=== PATIENT | female | born 1975 | race Caucasian/White ===

== ENCOUNTER 2021-11-21 12:18 | Inpatient (IN) ==
[2021-11-21 14:55] LABS: Basophils # (auto) 0.01 K/uL (0-0.2); Basophils % (auto) 0.1 %; Eosinophils # (auto) 0.02 K/uL (0-0.50); Eosinophils % (auto) 0.2 %; Hematocrit (blood only) 39.4 % (34.1-44.9); Hemoglobin 13.3 g/dl (12.0-16.0); Immature Granulocytes # (auto) 0.03 K/uL (0.00-0.02); Immature Granulocytes % (auto) 0.3 %; Lymphocytes # (auto) 0.92 K/uL (1.2-3.4); Lymphocytes % (auto) 9.3 %; Mean Corpuscular Hemoglobin 28.1 pg (25.0-34.0); Mean Corpuscular Hgb Conc 33.8 g/dL (32.0-36.0); Mean Corpuscular Volume 83.3 fL (80.0-100.0); Mean Platelet Volume 9.5 fL (9.4-12.3); Neutrophils # (auto) 8.63 K/uL (1.4-6.5); Neutrophils % (auto) 87.1 %; Platelet Count 233 K/uL (130-400); RDW Coefficient of Variation 12.3 % (11.5-14.5); RDW Standard Deviation 37.4 fL (36.4-46.3); Red Blood Count 4.73 M/uL (3.93-5.22); White Blood Count 9.91 K/ul (4.8-10.8)
[2021-11-21 15:12] LABS: Albumin Globulin Ratio 1.2 (0.9-2); Albumin Level 4.2 gm/dl (3.4-5.0); BUN Creatinine Ratio 23.9 (10-20); Bilirubin,Total 0.4 mg/dl (0.2-1.0); Calcium 9.2 mg/dl (8.5-10.1); Creatinine Clr Calc Pharmacy 103.4 ml/min; Est GFR (African American) 93.3 ml/min; Est GFR (Non-African American) 80.5 ml/min; Globulin 3.5 gm/dl (2.5-4.0); Potassium 3.8 mmol/L (3.5-5.1); Total Protein 7.7 gm/dl (6.0-8.3)
[2021-11-21] MEDS ORDERED: KETOROLAC 30 MG/ML VIAL IV STA (15:19)
[2021-11-21] MEDS ORDERED: ONDANSETRON INJ 2 MG/ML 2 ML VIAL IV STA (15:19)
[2021-11-21 15:26] LABS: Pregnancy Test, Serum Negative (Negative)
[2021-11-21] MEDS ORDERED: SODIUM CHLORIDE 0.9% 1000ML 1,000 ML IV SCH ×2 (15:30→18:45)
[2021-11-21] MEDS: MoRPHine SULFATE 4 MG/ML 1 ML CARP\\VIAL IV PRN ×2 (15:32→17:12)
[2021-11-21 16:20] LABS: Appearance Urine Cloudy (Clear); Bacteria Urine Automated 3+ (Negative); Bilirubin Urine Negative (Negative); Blood Urine 2+ (Negative); Color Urine Yellow; Epithelial Cell Urine Auto >30 /lpf (0-5); Glucose Urine UA Negative (Negative); Ketones Urine Trace (Negative); Leukocyte Esterase Urine 1+ (Negative); Nitrite Urine Negative (Negative); Protein Urine 1+ (Negative); Specific Gravity Urine 1.027 (1.000-1.030); Urobilinogen Urine Negative (Negative); WBC Urine Automated >30 /hpf (0-5)
--- NOTE | 2021-11-21 16:37 | CT Scan Report ---
CT abd pelvis wo con CLINICAL HISTORY: RLQ abd pain TECHNIQUE: Helical axial images of the abdomen and pelvis were obtained. Automated dose lowering tech niques and/or adjustment according to patient size were utilized for this exam. This exam was perfor med without intravenous contrast. CT DOSE: 1480.24 mGy.cm COMPARISON: None available at the time of this dictation. FINDINGS: Lower chest: No acute abnormality Liver: Unremarkable. No focal lesions are seen. Gallbladder and biliary tree: No calcified gallstones. Normal caliber wall. No intra- or extrahepatic biliary ductal dilation. Pancreas: Unremarkable, no focal lesions. Spleen: Unremarkable. Adrenals: Unremarkable. Kidneys and ureters: There is prominent right hydronephrosis. There is a polygonal 9 mm stone in the proximal ureter. Additional nonobstructive stone is in the right renal collecting system. Bladder: Limited evaluation due to underdistention. Reproductive organs: Incidental note is made of an exophytic lesion arising from the uterus which may represent a fibroid, although evaluation is limited on noncontrast exam.. Bowel: Unremarkable appearance of the bowel. The appendix is normal. A hiatal hernia is seen. Lymph nodes Retroperitoneal: Unremarkable. Pelvic: Unremarkable. Mesenteric: Unremarkable. Peritoneum: Normal. Vessels: Unremarkable. Abdominal wall: An umbilical hernia is seen. Bones: Unremarkable. IMPRESSION: Right obstructive nephrolithiasis with associated hydronephrosis. Nonobstructive nephrolithiasis is a lso noted. ACT 112: Negative or not required by law. Electronically signed by: Don Gottlieb M.D. 11/21/2021 4:36 PM
[2021-11-21 16:39] LABS: Amphetamines+Metham, Urine Neg (Neg); Barbiturates, Urine Neg (Neg); Benzodiazepine, Urine Neg (Neg); Cocaine, Urine Neg (Neg); MDMA (Ecstacy), Urine Neg (Neg); Methadone, Urine Neg (Neg); Opiate, Urine Neg (Neg); Phencyclidine, Urine Neg (Neg)
[2021-11-21] MEDS ORDERED: cefTRIAXone SODIUM 2,000 MG/70 ML BAG IV STA (18:32)
--- NOTE | 2021-11-21 19:48 | Emergency Department Note ---
History of Present Illness General Chief complaint: Abdominal Pain Stated complaint: ABDOM PAIN, BACK PAIN, NAUSEA Time Seen by Provider: 11/21/21 15:10 History of Present Illness Maximum Pain Intensity: 4 This is a 45-year-old female presenting to the emergency department for evaluation of right lower quadrant abdominal pain that began acutely roughly 4 to 5 hours prior to arrival. The patient states the pain has a constant 8/10 intensity, and is sharp in nature. She will have intermittent escalation of pain to a 10/10. She attempted to take ibuprofen for her symptoms, but had v omiting. The patient is usually healthy and has not had fevers or chills. No chest pain, chest tightness, or shortness of breath. There is a past history of tubal ligation but no other surgical history. She does not take medication on a regular basis. She rates her discomfort a 4/10. She is traveling for work from [place]. Home Medications Medication Instructions Recorded Confirmed Type No Known Home Medications 11/21/21 11/21/21 History Allergies Allergy/AdvReac Type Severity Reaction Status Date / Time No Known Allergies Allergy Unverified 11/21/21 18:17 Past Med/Surg History Medical History History of kidney stones Morbid obesity No chronic diseases present Surgical History History of tubal ligation Social History Smoking Status: Never smoker Do You Dip or Chew Tobacco: No; Hx Alcohol Use: Yes Hx Substance Use: Yes Preferred Language: Armenian Communication Ability: Effective Managing Principal Required: No Beliefs That Will Affect Care: None Current Living Situation: Significant Other Other Information That Helps Us Care for You: No Feels Safe at Home: Yes Safety Concerns: Feels Safe At This Time Review of Systems A total of 10 systems reviewed and were otherwise negative Physical Exam Vital Signs Vital Signs - 24 hr 11/21/21 15:01 11/21/21 15:17 11/21/21 15:20 Temperature 36.6 C Temperature Source Oral Pulse Rate 72 73 Pulse Rate [Finger] 74 Pulse Rate from SpO2 Sensor 73 74 Pulse Rhythm [Finger] Regular Pulse Strength [Finger] Normal Respiratory Rate 18 Respiratory Effort / Characteristics Non-Labored Spontaneous Respiratory Depth Normal Respiratory Pattern Regular Blood Pressure Blood Pressure [Right Arm] 174/102 H Blood Pressure Mean Blood Pressure Mean [Right Arm] 126 Blood Pressure Position [Right Arm] Lying Pulse Oximetry 100 98 100 Oxygen Delivery Method Room Air 11/21/21 16:04 11/21/21 16:23 11/21/21 16:23 Temperature Temperature Source Pulse Rate 139 H Pulse Rate [Finger] Pulse Rate from SpO2 Sensor 74 Pulse Rhythm [Finger] Pulse Strength [Finger] Respiratory Rate Respiratory Effort / Characteristics Respiratory Depth Respiratory Pattern Blood Pressure 154/102 H Blood Pressure [Right Arm] Blood Pressure Mean 119 Blood Pressure Mean [Right Arm] Blood Pressure Position [Right Arm] Pulse Oximetry 98 Oxygen Delivery Method 11/21/21 16:25 11/21/21 16:25 11/21/21 16:29 Temperature Temperature Source Pulse Rate Pulse Rate [Finger] Pulse Rate from SpO2 Sensor 69 61 Pulse Rhythm [Finger] Pulse Strength [Finger] Respiratory Rate Respiratory Effort / Characteristics Respiratory Depth Respiratory Pattern Blood Pressure 141/62 H Blood Pressure [Right Arm] Blood Pressure Mean 88 Blood Pressure Mean [Right Arm] Blood Pressure Position [Right Arm] Pulse Oximetry 100 100 Oxygen Delivery Method 11/21/21 16:30 11/21/21 16:31 11/21/21 16:40 Temperature Temperature Source Pulse Rate Pulse Rate [Finger] Pulse Rate from SpO2 Sensor 62 67 Pulse Rhythm [Finger] Pulse Strength [Finger] Respiratory Rate Respiratory Effort / Characteristics Respiratory Depth Respiratory Pattern Blood Pressure 128/67 Blood Pressure [Right Arm] Blood Pressure Mean 87 Blood Pressure Mean [Right Arm] Blood Pressure Position [Right Arm] Pulse Oximetry 100 100 Oxygen Delivery Method 11/21/21 16:50 11/21/21 17:00 11/21/21 17:02 Temperature Temperature Source Pulse Rate Pulse Rate [Finger] Pulse Rate from SpO2 Sensor 78 67 80 Pulse Rhythm [Finger] Pulse Strength [Finger] Respiratory Rate Respiratory Effort / Characteristics Respiratory Depth Respiratory Pattern Blood Pressure Blood Pressure [Right Arm] Blood Pressure Mean Blood Pressure Mean [Right Arm] Blood Pressure Position [Right Arm] Pulse Oximetry 97 100 100 Oxygen Delivery Method 11/21/21 17:02 11/21/21 19:15 11/21/21 21:15 Temperature Temperature Source Pulse Rate Pulse Rate [Finger] 74 76 Pulse Rate from SpO2 Sensor Pulse Rhythm [Finger] Pulse Strength [Finger] Respiratory Rate 20 20 Respiratory Effort / Characteristics Non-Labored Spontaneous Non-Labored Spontaneous Respiratory Depth Normal Normal Respiratory Pattern Blood Pressure 111/61 Blood Pressure [Right Arm] 123/69 130/76 Blood Pressure Mean 77 Blood Pressure Mean [Right Arm] 87 94 Blood Pressure Position [Right Arm] Pulse Oximetry 98 98 Oxygen Delivery Method Room Air Room Air VITALS: Vitals are noted on the nurse's note and reviewed by myself. Vital signs stable. GENERAL: Well-developed, well-nourished, female, who is in moderate to significant discomfort. She is cooperative with the exam and otherwise pleasant. HEAD: Normocephalic atraumatic. HEART: Regular rate and rhythm without murmurs gallops or rubs. LUNGS: Clear to auscultation bilaterally without wheezes, rales or rhonchi. No retractions or accessory muscle use. ABDOMEN: Positive normal bowel sounds x 4. Soft, nontender, without masses or organomegaly. No guarding or rebound tenderness. No CVA tenderness. MUSCULOSKELETAL: No muscle atrophy, erythema, or edema noted. Full range of motion in all extremities. No tenderness to palpation. Normal gait. Strength 5/5 throughout. NEURO: Patient was alert and oriented to person place and time. CN II through XII grossly intact. Course Administered Medications Acetaminophen (Acetaminophen 325 Mg Tab) 650 mg PO Q4H PRN; Protocol PRN Reason: pain(,210)/fever Stop: 12/21/21 22:35 Last Admin: 11/22/21 08:09 Dose: 650 mg Documented By: Admin: 11/22/21 02:18 Dose: 650 mg Documented By: MICAELA Sodium Chloride (Nss 1000ml) 1,000 mls @ 125 mls/hr IV .Q8H [facility] Stop: 12/21/21 22:35 Last Admin: 11/22/21 06:41 Dose: 125 mls/hr Documented By: Infusion: 11/22/21 06:40 Dose: 0 mls/hr Documented By: Admin: 11/21/21 23:01 Dose: 125 mls/hr Documented By: MICAELA Tamsulosin HCl (Tamsulosin Hcl 0.4 Mg Cap) 0.4 mg PO QAM [facility] Stop: 12/22/21 08:59 Last Admin: 11/22/21 08:09 Dose: 0.4 mg Documented By: ELIJAH Discontinued Medications Diatrizoate Meglumine (Diatrizoate Meglumine 30% 100ml Vial) 16 ml INSTIL ONCE ONE Stop: 11/22/21 14:06 Last Admin: 11/22/21 14:06 Dose: 16 ml Documented By: [id number] Sodium Chloride (Nss 1000ml) 1,000 mls @ 999 mls/hr IV .Q1H1M [facility] Stop: 11/21/21 16:30 Last Infusion: 11/21/21 16:34 Dose: 0 mls/hr Documented By: [id number] Admin: 11/21/21 15:29 Dose: 999 mls/hr Documented By: ROBERT Ceftriaxone Sodium (Rocephin) 2,000 mg in 70 mls @ 140 mls/hr IV NOW STA Stop: 11/21/21 19:01 Last Infusion: 11/21/21 20:27 Dose: 0 mls/hr Documented By: Admin: 11/21/21 19:18 Dose: 140 mls/hr Documented By: MICAELA Sodium Chloride (Nss 1000ml) 1,000 mls @ 999 mls/hr IV .Q1H1M RENETTA Stop: 11/21/21 19:45 Last Infusion: 11/21/21 20:27 Dose: 0 mls/hr Documented By: Admin: 11/21/21 19:17 Dose: 999 mls/hr Documented By: MICAELA Magnesium Sulfate/Dextrose (Magnesium Sulfate / D5w) 1 gm in 100 mls @ 50 mls/hr IV ONE ONE Stop: 11/22/21 11:58 Last Admin: 11/22/21 10:30 Dose: 50 mls/hr Documented By: ELIJAH Ketorolac Tromethamine (Ketorolac 30 Mg/Ml Vial) 30 mg IV NOW STA Stop: 11/21/21 15:20 Last Admin: 11/21/21 15:31 Dose: 30 mg Documented By: ROBERT Morphine Sulfate (Morphine Sulfate 4 Mg/Ml 1 Ml Carp\Vial) 4 mg IV Q30M PRN PRN Reason: Pain Stop: 12/05/21 15:18 Last Admin: 11/21/21 17:12 Dose: 4 mg Documented By: [id number] Admin: 11/21/21 15:32 Dose: 4 mg Documented By: AM Ondansetron HCl (Ondansetron Inj 2 Mg/Ml 2 Ml Vial) 4 mg IV NOW STA Stop: 11/21/21 15:20 Last Admin: 11/21/21 15:29 Dose: 4 mg Documented By: ROBERT Tamsulosin HCl (Tamsulosin Hcl 0.4 Mg Cap) 0.4 mg PO NOW ONE Stop: 11/21/21 22:37 Last Admin: 11/21/21 22:53 Dose: 0.4 mg Documented By: MICAELA Medical Decision Making Differential Diagnosis Differential diagnosis: Etiologies such as biliary colic, cholecystitis, hepatitis, pancreatitis, cardiac disease, pancreatitis, gastritis, peptic ulcer disease, appendicitis, cystitis, diverticulitis, mesenteric ischemia, inflammatory bowel disease, ileus, bowel obstruction, testicular/adnexal torsion, aortic pathology, shingles, as well as others were considered Laboratory Data Result diagrams: 11/22/21 06:09 11/22/21 06:09 Lab Results 11/21/21 11/21/21 11/21/21 Range/Units 14:31 14:31 14:31 WBC 9.91 (4.8-10.8) K/ul RBC 4.73 (3.93-5.22) M/uL Hgb 13.3 (12.0-16.0) g/dl Hct 39.4 (34.1-44.9) % MCV 83.3 (80.0-100.0) fL MCH 28.1 (25.0-34.0) pg MCHC 33.8 (32.0-36.0) g/dL RDW Std Deviation 37.4 (36.4-46.3) fL RDW Coeff of Sandy 12.3 (11.5-14.5) % Plt Count 233 (130-400) K/uL MPV 9.5 (9.4-12.3) fL Immature Gran % (Auto) 0.3 % Neut % (Auto) 87.1 % Lymph % (Auto) 9.3 % [place] % (Auto) 3.0 % Eos % (Auto) 0.2 % Baso % (Auto) 0.1 % Neut # (Auto) 8.63 H (1.4-6.5) K/uL Lymph # (Auto) 0.92 L (1.2-3.4) K/uL [place] # (Auto) 0.30 (0.24-0.82) K/uL Eos # (Auto) 0.02 (0-0.50) K/uL Baso # (Auto) 0.01 (0-0.2) K/uL Immature Gran # (Auto) 0.03 H (0.00-0.02) K/uL Sodium 142 (136-145) mmol/L Potassium 3.8 (3.5-5.1) mmol/L Chloride 107 (98-107) mmol/L Carbon Dioxide 29 (21-32) mmol/L Anion Gap 6 (3-11) BUN 21 (6-23) mg/dl Creatinine 0.88 (0.6-1.2) mg/dl Est Cr Clr Drug Dosing 103.4 ml/min Est GFR ( Amer) 93.3 ml/min Est GFR (Non-Af Amer) 80.5 ml/min BUN/Creatinine Ratio 23.9 H (10-20) Glucose 117 H (70-99(Fasting)) mg/dl Calcium 9.2 (8.5-10.1) mg/dl Total Bilirubin 0.4 (0.2-1.0) mg/dl AST 13 (13-39) U/L ALT 10 (7-52) U/L Alkaline Phosphatase 51 (34-104) U/L Total Protein 7.7 (6.0-8.3) gm/dl Albumin 4.2 (3.4-5.0) gm/dl Globulin 3.5 (2.5-4.0) gm/dl Albumin/Globulin Ratio 1.2 (0.9-2) Lipase 28 (11-82) U/L HCG, Qual Negative (Negative) Urine Color Urine Appearance (Clear) Urine pH (4.5-7.5) Ur Specific Sinclair (1.000-1.030) Urine Protein (Negative) Urine Glucose (UA) (Negative) Urine Ketones (Negative) Urine Blood (Negative) Urine Nitrite (Negative) Urine Bilirubin (Negative) Urine Urobilinogen (Negative) Ur Leukocyte Esterase (Negative) Urine WBC (Auto) (0-5) /hpf Urine RBC (Auto) (0-4) /hpf U Hyaline Cast (Auto) (0-5) /lpf U Epithel Cells (Auto) (0-5) /lpf Urine Bacteria (Auto) (Negative) POC Ur Test (NEG) Urine Opiates Screen (Neg) Ur Methadone, Qual (Neg) Urine Barbiturates (Neg) Ur Phencyclidine (PCP) (Neg) U Amphetamin/Meth Scrn (Neg) MDMA (Ecstasy) Screen (Neg) U Benzodiazepines Scrn (Neg) Ur Cocaine Metabolite (Neg) U Marijuana (THC) Screen (Neg) SARS-CoV-2, RNA, NAAT (NEGATIVE) 11/21/21 11/21/21 11/21/21 Range/Units 15:35 15:35 15:44 WBC (4.8-10.8) K/ul RBC (3.93-5.22) M/uL Hgb (12.0-16.0) g/dl Hct (34.1-44.9) % MCV (80.0-100.0) fL MCH (25.0-34.0) pg MCHC (32.0-36.0) g/dL RDW Std Deviation (36.4-46.3) fL RDW Coeff of Sandy (11.5-14.5) % Plt Count (130-400) K/uL MPV (9.4-12.3) fL Immature Gran % (Auto) % Neut % (Auto) % Lymph % (Auto) % [place] % (Auto) % Eos % (Auto) % Baso % (Auto) % Neut # (Auto) (1.4-6.5) K/uL Lymph # (Auto) (1.2-3.4) K/uL [place] # (Auto) (0.24-0.82) K/uL Eos # (Auto) (0-0.50) K/uL Baso # (Auto) (0-0.2) K/uL Immature Gran # (Auto) (0.00-0.02) K/uL Sodium (136-145) mmol/L Potassium (3.5-5.1) mmol/L Chloride (98-107) mmol/L Carbon Dioxide (21-32) mmol/L Anion Gap (3-11) BUN (6-23) mg/dl Creatinine (0.6-1.2) mg/dl Est Cr Clr Drug Dosing ml/min Est GFR ( Amer) ml/min Est GFR (Non-Af Amer) ml/min BUN/Creatinine Ratio (10-20) Glucose (70-99(Fasting)) mg/dl Calcium (8.5-10.1) mg/dl Total Bilirubin (0.2-1.0) mg/dl AST (13-39) U/L ALT (7-52) U/L Alkaline Phosphatase (34-104) U/L Total Protein (6.0-8.3) gm/dl Albumin (3.4-5.0) gm/dl Globulin (2.5-4.0) gm/dl Albumin/Globulin Ratio (0.9-2) Lipase (11-82) U/L HCG, Qual (Negative) Urine Color Yellow Urine Appearance Cloudy A (Clear) Urine pH 6.0 (4.5-7.5) Ur Specific Sinclair 1.027 (1.000-1.030) Urine Protein 1+ H (Negative) Urine Glucose (UA) Negative (Negative) Urine Ketones Trace H (Negative) Urine Blood 2+ H (Negative) Urine Nitrite Negative (Negative) Urine Bilirubin Negative (Negative) Urine Urobilinogen Negative (Negative) Ur Leukocyte Esterase 1+ H (Negative) Urine WBC (Auto) >30 H (0-5) /hpf Urine RBC (Auto) 5-10 H (0-4) /hpf U Hyaline Cast (Auto) 10-30 H (0-5) /lpf U Epithel Cells (Auto) >30 H (0-5) /lpf Urine Bacteria (Auto) 3+ H (Negative) POC Ur Test NEG (NEG) Urine Opiates Screen Neg (Neg) Ur Methadone, Qual Neg (Neg) Urine Barbiturates Neg (Neg) Ur Phencyclidine (PCP) Neg (Neg) U Amphetamin/Meth Scrn Neg (Neg) MDMA (Ecstasy) Screen Neg (Neg) U Benzodiazepines Scrn Neg (Neg) Ur Cocaine Metabolite Neg (Neg) U Marijuana (THC) Screen Pos H (Neg) SARS-CoV-2, RNA, NAAT (NEGATIVE) 11/21/21 Range/Units 17:16 WBC (4.8-10.8) K/ul RBC (3.93-5.22) M/uL Hgb (12.0-16.0) g/dl Hct (34.1-44.9) % MCV (80.0-100.0) fL MCH (25.0-34.0) pg MCHC (32.0-36.0) g/dL RDW Std Deviation (36.4-46.3) fL RDW Coeff of Sandy (11.5-14.5) % Plt Count (130-400) K/uL MPV (9.4-12.3) fL Immature Gran % (Auto) % Neut % (Auto) % Lymph % (Auto) % [place] % (Auto) % Eos % (Auto) % Baso % (Auto) % Neut # (Auto) (1.4-6.5) K/uL Lymph # (Auto) (1.2-3.4) K/uL [place] # (Auto) (0.24-0.82) K/uL Eos # (Auto) (0-0.50) K/uL Baso # (Auto) (0-0.2) K/uL Immature Gran # (Auto) (0.00-0.02) K/uL Sodium (136-145) mmol/L Potassium (3.5-5.1) mmol/L Chloride (98-107) mmol/L Carbon Dioxide (21-32) mmol/L Anion Gap (3-11) BUN (6-23) mg/dl Creatinine (0.6-1.2) mg/dl Est Cr Clr Drug Dosing ml/min Est GFR ( Amer) ml/min Est GFR (Non-Af Amer) ml/min BUN/Creatinine Ratio (10-20) Glucose (70-99(Fasting)) mg/dl Calcium (8.5-10.1) mg/dl Total Bilirubin (0.2-1.0) mg/dl AST (13-39) U/L ALT (7-52) U/L Alkaline Phosphatase (34-104) U/L Total Protein (6.0-8.3) gm/dl Albumin (3.4-5.0) gm/dl Globulin (2.5-4.0) gm/dl Albumin/Globulin Ratio (0.9-2) Lipase (11-82) U/L HCG, Qual (Negative) Urine Color Urine Appearance (Clear) Urine pH (4.5-7.5) Ur Specific Sinclair (1.000-1.030) Urine Protein (Negative) Urine Glucose (UA) (Negative) Urine Ketones (Negative) Urine Blood (Negative) Urine Nitrite (Negative) Urine Bilirubin (Negative) Urine Urobilinogen (Negative) Ur Leukocyte Esterase (Negative) Urine WBC (Auto) (0-5) /hpf Urine RBC (Auto) (0-4) /hpf U Hyaline Cast (Auto) (0-5) /lpf U Epithel Cells (Auto) (0-5) /lpf Urine Bacteria (Auto) (Negative) POC Ur Test (NEG) Urine Opiates Screen (Neg) Ur Methadone, Qual (Neg) Urine Barbiturates (Neg) Ur Phencyclidine (PCP) (Neg) U Amphetamin/Meth Scrn (Neg) MDMA (Ecstasy) Screen (Neg) U Benzodiazepines Scrn (Neg) Ur Cocaine Metabolite (Neg) U Marijuana (THC) Screen (Neg) SARS-CoV-2, RNA, NAAT NEGATIVE (NEGATIVE) Imaging Data Radiologist's Impression: Abdomen/Pelvis CT 11/21/21 15:19 CT abd pelvis wo con CLINICAL HISTORY: RLQ abd pain TECHNIQUE: Helical axial images of the abdomen and pelvis were obtained. Automated dose lowering techniques and/or adjustment according to patient size were utilized for this exam. This exam was performed without intravenous contrast. CT DOSE: 1480.24 mGy.cm COMPARISON: None available at the time of this dictation. FINDINGS: Lower chest: No acute abnormality Liver: Unremarkable. No focal lesions are seen. Gallbladder and biliary tree: No calcified gallstones. Normal caliber wall. No intra- or extrahepatic biliary ductal dilation. Pancreas: Unremarkable, no focal lesions. Spleen: Unremarkable. Adrenals: Unremarkable. Kidneys and ureters: There is prominent right hydronephrosis. There is a polygonal 9 mm stone in the proximal ureter. Additional nonobstructive stone is in the right renal collecting system. Bladder: Limited evaluation due to underdistention. Reproductive organs: Incidental note is made of an exophytic lesion arising from the uterus which may represent a fibroid, although evaluation is limited on noncontrast exam.. Bowel: Unremarkable appearance of the bowel. The appendix is normal. A hiatal hernia is seen. Lymph nodes Retroperitoneal: Unremarkable. Pelvic: Unremarkable. Mesenteric: Unremarkable. Peritoneum: Normal. Vessels: Unremarkable. Abdominal wall: An umbilical hernia is seen. Bones: Unremarkable. IMPRESSION: Right obstructive nephrolithiasis with associated hydronephrosis. Nonobstructive nephrolithiasis is also noted. ACT 112: Negative or not required by law. Electronically signed by: Don Gottlieb M.D. 11/21/2021 4:36 PM MDM Narrative Physical exam and history were performed. Nursing notes, EMR, and Medication List were personally reviewed. Patient appears to have significant discomfort in the right lower quadrant. This is not reproducible on palpation. IV access was established and labs were obtained. She was hydrated with normal saline and given IV morphine, IV Zofran, and IV Toradol. She was sent to CT scan for imaging, and did have orders for ultrasound placed as well. Patient's blood work is as above and was reviewed. She does not have a significantly elevated white blood cell count, gross anemia, bandemia, or significant electrolyte imbalance. Transaminases are not diagnostic. She is not . Urine is concerning for infection as there is esterase, bacteria, and white cells. She is not . CT scan was reviewed by myself and radiology. It does show a proximal obstructing 9 mm ureteral calculi which is likely causing her symptoms. Because of this diagnosis the ultrasounds were canceled. COVID was performed and negative. I did discuss the findings at length with the patient, and she does now recall that she has had a kidney stone in the past. Overall the patient does not appear well for discharge home. She has a large obstructing stone that may be infected. I did give her IV Rocephin and reach out to the unassigned hospitalist service, which was [facility]. They will e valuate the patient here in the ER. Please see their dictation for further patient course, plan, disposition. The chart was completed utilizing [employer] Speech Voice Recognition Software. Grammatical errors, random word insertions, pronoun errors, and incomplete sentences are an occasional consequence of this system due to software limitations, ambient noise, and hardware issues. Any formal questions or concerns about the content, text, or information contained within the body of this dictation should be directly addressed to the provider for clarification. . Impression & Plan Ureteral calculus, Hydronephrosis Discharge Plan Visit Data Chief Complaint: Abdominal Pain Stated Complaint: ABDOM PAIN, BACK PAIN, NAUSEA ED Provider: Luz Elena Mccord ED Midlevel Provider: Sony Esquivel Discharge Problem: Ureteral calculus, Hydronephrosis Discharge Instructions Interventions: ED Discharge Assessment Last Done: 11/21/21 22:37
[2021-11-21] MEDS ORDERED: POLYETHYLENE (MIRALAX) 17 GM PACK PO PRN (22:36)
[2021-11-21] MEDS ORDERED: HYDROmorphone INJ 0.5 MG/0.5 ML SYR IV PRN (22:36)
[2021-11-21] MEDS ORDERED: TAMSULOSIN HCL 0.4 MG CAP PO ONE (22:36)
[2021-11-21] MEDS ORDERED: ONDANSETRON INJ 2 MG/ML 2 ML VIAL IV PRN (22:36)
--- NOTE | 2021-11-21 22:44 | History and Physical Report ---
DATE OF ADMISSION: 11/21/2021. CHIEF COMPLAINT: Right renal colic. HISTORY OF PRESENT ILLNESS: A 45-year-old female with past medical history significant for kidney stone 10-11 years ago, treated with lithotripsy, obesity, comes because of right abdominal pain. The patient is from [facility]. She was coming to [place] for work and on the way she started noticing right flank pain, severe pain, associated with nausea and not getting better, so she came to the ER and found to have right kidney stone. After the pain medication, currently resting comfortably. Pain is resolved. Hemodynamically stable currently. Denies any headache. No blurred visions, no earache, no runny nose, no sore throat, no cough. Was feeling a lot of chills. No chest pain, no shortness of breath. Normal bowel and bladder movements. No burning micturition, no hematuria, no swelling in the legs. ALLERGIES: No known drug allergies. PAST MEDICAL HISTORY: As mentioned above. PAST SURGICAL HISTORY: Lithotripsy. MEDICATIONS: None. FAMILY HISTORY: Nothing significant. SOCIAL HISTORY: Smokes marijuana. No alcohol use. REVIEW OF SYSTEMS: As per HPI. Rest of the review of systems is negative. PHYSICAL EXAMINATION: GENERAL: The patient is obese, not in acute distress. VITAL SIGNS: Temperature 36.6, pulse 74, respiratory rate 20, blood pressure 123/69, oxygen 98% on room air. HEENT: Pupils equal, round and reactive to light. Oral mucosa moist. NECK: No JVD, no neck masses. CARDIOVASCULAR: S1 and S2 heard. Regular rate and rhythm. No murmur, no gallop. RESPIRATORY SYSTEM: Normal AP diameter. No accessory muscle use. No wheezing, no crackles. ABDOMEN: Soft, bowel sounds present. Mild epigastric tenderness. Right upper quadrant tenderness present. No guarding, no rigidity, no distention. No CVA tenderness. CENTRAL NERVOUS SYSTEM: Cranial nerves II-XII grossly intact, nonfocal. EXTREMITIES: No edema, no erythema. LABORATORY DATA: WBC 9.9, hemoglobin 13.3, hematocrit 39.4, platelets 233. Sodium 142, potassium 3.8, chloride 107, bicarbonate 29, BUN 21, creatinine 0.8, serum glucose 117, calcium 9.2, total bilirubin 0.4, AST 13, ALT 10, alkaline phosphatase 51. Lipase 28. HCG qualitative negative. Urinalysis +2 blood, +1 leukocyte esterase, +3 bacteria. Urine test negative. Urine drug screen, marijuana positive. SARS-CoV-[address] abdomen and pelvis without contrast shows right obstructive nephrolithiasis with associated hydronephrosis, 9 mm stone in the proximal ureter. ASSESSMENT AND PLAN: This is a 45-year-old female who presents with right renal colic. 1. Right renal colic with hydronephrosis: Pain control, n.p.o., IV fluids, Flomax, IV Rocephin for urinary tract infection. Urology consult in a.m. Monitor in the medical floor. 2. Urinary tract infection: Rocephin. Follow the cultures. 3. Obesity: Needs counseling. 4. Deep venous thrombosis prophylaxis: Sequential compression devices. DISPOSITION: Monitor in the medical floor. Expect to discharge home and follow with family doctor. Job ID: [id number]
[2021-11-21] MEDS: SODIUM CHLORIDE 0.9% 1000ML 1,000 ML IV SCH (23:01)
[2021-11-22] MEDS: ACETAMINOPHEN 325 MG TAB PO PRN ×3 (02:18→20:04)
[2021-11-22] MEDS: SODIUM CHLORIDE 0.9% 1000ML 1,000 ML IV SCH ×3 (06:41→23:18)
[2021-11-22 06:45] LABS: Basophils # (auto) 0.01 K/uL (0-0.2); Basophils % (auto) 0.1 %; Eosinophils # (auto) 0.01 K/uL (0-0.50); Eosinophils % (auto) 0.1 %; Hematocrit (blood only) 34.6 % (34.1-44.9); Hemoglobin 11.8 g/dl (12.0-16.0); Immature Granulocytes # (auto) 0.03 K/uL (0.00-0.02); Immature Granulocytes % (auto) 0.4 %; Lymphocytes # (auto) 0.57 K/uL (1.2-3.4); Lymphocytes % (auto) 6.7 %; Mean Corpuscular Hemoglobin 28.5 pg (25.0-34.0); Mean Corpuscular Hgb Conc 34.1 g/dL (32.0-36.0); Mean Corpuscular Volume 83.6 fL (80.0-100.0); Mean Platelet Volume 9.6 fL (9.4-12.3); Monocytes # (auto) 0.44 K/uL (0.24-0.82); Monocytes % (auto) 5.1 %; Neutrophils # (auto) 7.49 K/uL (1.4-6.5); Neutrophils % (auto) 87.6 %; Platelet Count 179 K/uL (130-400); RDW Coefficient of Variation 12.4 % (11.5-14.5); RDW Standard Deviation 37.8 fL (36.4-46.3); Red Blood Count 4.14 M/uL (3.93-5.22); White Blood Count 8.55 K/ul (4.8-10.8)
[2021-11-22 06:54] LABS: INR 1.1 (0.9-1.1); Partial Thromboplastin Ratio 1.1; Partial Thromboplastin Time 30.2 Seconds (21.0-31.0); Prothrombin Time 11.3 Seconds (9.0-12.0)
[2021-11-22 07:15] LABS: BUN Creatinine Ratio 18.5 (10-20); Calcium 8.1 mg/dl (8.5-10.1); Creatinine Clr Calc Pharmacy 138.5 ml/min; Est GFR (African American) 125.1 ml/min; Magnesium 1.5 mg/dl (1.7-2.4); Potassium 3.5 mmol/L (3.5-5.1)
[2021-11-22] MEDS: TAMSULOSIN HCL 0.4 MG CAP PO SCH (08:09)
--- NOTE | 2021-11-22 08:28 | Urology Consultation ---
Date of Consultation November 22, 2021 Assessment & Plan (1) Right ureteral calculus: (2) Renal colic: (3) Hydronephrosis: Plan 46yo F admitted with renal colic and concern for UTI in the setting of an obstructing right ureteral stone - Afebrile and hemodynamically stable at present. - Labs reviewed-no leukocytosis and normal renal function. - Urinalysis suspicious for infection, culture pending, on IV ceftriaxone - Findings reviewed with Dr. Darnell, on-call urologist. - Given her intractable flank pain and suspected UTI in the context of an obstructing right ureteral stone, will proceed with OR for cystoscopy, right retrograde pyelogram, right ureteral stent placement. - Risks and benefits to be reviewed with patient by Dr. Darnell. OR notified. Covid test negative. Covered with scheduled IV Ceftriaxone. - Keep NPO. - Continue supportive care, antibiotic therapy, and pain management. - Urology will follow. Supervising Physician Co-Signing Physician Notes Discussed patient with JENNIFER. Agree with plan. Obstructing stone and concern for infection so we will proceed forth with stent today History of Present Illness Reason for Consultation: renal colic, ureteral stone Attending Physician: Jonathan Almeida MD History of Present Illness 45-year-old female with past medical history significant for nephrolithiasis (treated with lithotripsy) and obesity who presented to the ED with severe right-sided abdominal pain. A CT abdomen pelvis was obtained and notable for an obstructing 9mm stone in the proximal right ureter causing hydronephrosis. On arrival, she was afebrile and hemodynamically stable. No leukocytosis and normal renal function. Urinalysis notable for 2+ blood, negative nitrite, 1+ LE,>30 WBC, 5-10RBC, 3+ bacteria. COVID test negative. She is admitted to medicine for further management. Patient is from the [facility]. Was coming to [place] for work when she started noticing the ED right-sided pain which prompted her arrival in the ED. CT abdomen pelvis - Right obstructive nephrolithiasis with associated hydronephrosis. Nonobstructive nephrolithiasis is also noted. Patient examined at bedside this AM in the ED. Awake, sitting in bedside chair on arrival. No acute distress. Reports pain has improved somewhat. Reports objective fevers and chills. No nausea or vomiting. Has been NPO. Voiding without issue. Denies hematuria or dysuria. Has a prior history of stones >10 years ago. Denies family history. Lives in [place], not currently established with a urologist. Allergies Allergy/AdvReac Type Severity Reaction Status Date / Time No Known Allergies Allergy Unverified 11/21/21 18:17 Home Medications Medication Instructions Recorded Confirmed Type No Known Home Medications 11/21/21 11/21/21 History Patient History Medical History History of kidney stones Morbid obesity No chronic diseases present Surgical History History of tubal ligation Social History Smoking Status: Never smoker Do You Dip or Chew Tobacco: No; Hx Alcohol Use: Yes Hx Substance Use: Yes Preferred Language: Tajik Communication Ability: Effective Die Turner Required: No Beliefs That Will Affect Care: None Current Living Situation: Significant Other Other Information That Helps Us Care for You: No Feels Safe at Home: Yes Safety Concerns: Feels Safe At This Time Review of Systems Review of Systems: All systems reviewed & are unremarkable except as noted in HPI & below Physical Exam Constitutional: well developed and well nourished; no acute distress and not ill appearing Eyes: PERRL, conjunctivae normal, anicteric sclerae ENMT: external ear and nose normal, oropharynx normal Neck: normal visual inspection Respiratory: normal respiratory effort and able to speak in complete sentences; no respiratory distress and no labored breathing Gastrointestinal (Abdomen): Inspection/Auscultation: abdomen normal to inspection; abdomen not distended Musculoskeletal: Head/Neck/Chest: normocephalic Skin: No visible rashes or lesions to exposed skin areas Neurologic: moves all extremities and awake Psychiatric: Orientation: alert, oriented x 3 and cooperative Results & Data ([facility]) Vital Signs (Past 12 Hours) Vital Signs Temp Pulse Resp BP Pulse Ox O2 Del Method 11/22/21 06:15 101 H 20 129/78 96 Room Air 11/22/21 02:21 92 H 20 118/76 99 11/21/21 23:09 37.4 C 83 20 119/71 97 Room Air 11/21/21 21:15 76 20 130/76 98 Room Air PG Care Time/CCT Total # of Minutes Spent Total Time Spent with Patient: Total time spent is greater than 50% in coordination of care (as documented) at patient's floor/unit and/or counseling patient: Coding Level of Care Code 46254 Inpt Consult Level 4 Diagnoses Right ureteral calculus N20.1 Renal colic N23 Hydronephrosis N13.30
--- NOTE | 2021-11-22 09:35 | Electrocardiogram Report ---
Test Reason : Blood Pressure : / mmHG Vent. Rate : 096 BPM Atrial Rate : 096 BPM P-R Int : 146 ms QRS Dur : 080 ms QT Int : 350 ms P-R-T Axes : 051 012 018 degrees QTc Int : 442 ms Normal sinus rhythm Normal ECG No previous ECGs available Confirmed by Anmol Carroll ([id number]) on 11/22/2021 9:35:03 AM Referred By: REFERRED SELF Confirmed By:Anmol Carroll
[2021-11-22] MEDS ORDERED: MAGNESIUM SULFATE / D5W 1 GM/100 ML BAG IV ONE (09:59)
--- NOTE | 2021-11-22 10:34 | Anesthesiology Consultation ---
Date of Service November 22, 2021 Assessment & Plan (1) Encounter for pre-operative examination: Chart Review Chart Review: Acceptable Risk for Surgery (necessary surgery) and Patient NOT seen in Pre Admission Testing Consults Requested none History Surgery Operation Date: 11/22/21 10:20 Proposed Procedures p Cystoscopy, Right Retrograde Pyelogram, Right Stent Placement - Yusuf Darnell MD Height/Weight Height: 5 ft 3 in Weight: 120 kg Allergies Allergy/AdvReac Type Severity Reaction Status Date / Time No Known Allergies Allergy Unverified 11/21/21 18:17 Medications Home Medications Medication Instructions Recorded Confirmed Last Taken No Known Home Medications 11/21/21 11/21/21 Unknown Active Medications Generic Name Dose Route Start Last Admin Trade Name Freq PRN Reason Stop Dose Admin Acetaminophen 650 mg 11/21/21 22:36 11/22/21 08:09 Acetaminophen 325 Mg Tab PO 12/21/21 22:35 650 mg Q4H PRN Administration pain/fever Sodium Chloride 1,000 mls @ 125 mls/hr 11/21/21 22:36 11/22/21 06:41 Nss 1000ml IV 12/21/21 22:35 125 mls/hr .Q8H RENETTA Administration Magnesium Sulfate/Dextrose 1 gm in 100 mls @ 50 mls/hr 11/22/21 09:59 11/22/21 10:30 Magnesium Sulfate / D5w IV 11/22/21 11:58 50 mls/hr ONE ONE Administration Tamsulosin HCl 0.4 mg 11/22/21 09:00 11/22/21 08:09 Tamsulosin Hcl 0.4 Mg Cap PO 12/22/21 08:59 0.4 mg QAM RENETTA Administration Past Medical History Medical History History of kidney stones Morbid obesity No chronic diseases present Past Surgical History Surgical History History of tubal ligation Social History Smoking Status: Never smoker Do You Dip or Chew Tobacco: No Hx Alcohol Use: Yes alcohol intake frequency: holidays/special occasions only Hx Substance Use: Yes substance use type: marijuana Physical Exam Vital Signs Last Vital Signs Temp 37.4 C 11/21/21 23:09 Pulse 101 H 11/22/21 06:15 Resp 20 11/22/21 06:15 BP 129/78 11/22/21 06:15 Pulse Ox 96 11/22/21 06:15 O2 Del Method 11/22/21 06:15 Testing Laboratory Results 11/22/21 06:09 11/22/21 06:09 PT 11.3 Seconds (9.0-12.0) 11/22/21 06:09 INR 1.1 (0.9-1.1) 11/22/21 06:09 APTT 30.2 Seconds (21.0-31.0) 11/22/21 06:09 Urine Color Yellow 11/21/21 15:35 Urine Appearance Cloudy (Clear) A 11/21/21 15:35 Urine pH 6.0 (4.5-7.5) 11/21/21 15:35 Ur Specific [place] 1.027 (1.000-1.030) 11/21/21 15:35 Urine Protein 1+ (Negative) H 11/21/21 15:35 Urine Glucose (UA) Negative (Negative) 11/21/21 15:35 Urine Ketones Trace (Negative) H 11/21/21 15:35 Urine Nitrite Negative (Negative) 11/21/21 15:35 Ur Leukocyte Esterase 1+ (Negative) H 11/21/21 15:35 Urine WBC (Auto) >30 /hpf (0-5) H 11/21/21 15:35 Urine RBC (Auto) 5-10 /hpf (0-4) H 11/21/21 15:35 U Hyaline Cast (Auto) 10-30 /lpf (0-5) H 11/21/21 15:35 U Epithel Cells (Auto) >30 /lpf (0-5) H 11/21/21 15:35 Urine Bacteria (Auto) 3+ (Negative) H 11/21/21 15:35 11/21/21 15:35 Urine Culture - Preliminary Urine,Clean Catch Gram negative bacilli 11/21/21 15:44 POC Ur Test NEG Electrocardiogram Date: 11/21/21 :Anmol Carroll MD Test Reason : Blood Pressure : / mmHG Vent. Rate : 096 BPM Atrial Rate : 096 BPM P-R Int : 146 ms QRS Dur : 080 ms QT Int : 350 ms P-R-T Axes : 051 012 018 degrees QTc Int : 442 ms Normal sinus rhythm Normal ECG No previous ECGs available Confirmed by Anmol Carroll ([id number]) on 11/22/2021 9:35:03 AM Referred By: REFERRED SELF Confirmed By:Anmol Carroll Other Testing CT abd pelvis wo con CLINICAL HISTORY: RLQ abd pain TECHNIQUE: Helical axial images of the abdomen and pelvis were obtained. Automated dose lowering techniques and/or adjustment according to patient size were utilized for this exam. This exam was performed without intravenous contrast. CT DOSE: 1480.24 mGy.cm COMPARISON: None available at the time of this dictation. FINDINGS: Lower chest: No acute abnormality Liver: Unremarkable. No focal lesions are seen. Gallbladder and biliary tree: No calcified gallstones. Normal caliber wall. No intra- or extrahepatic biliary ductal dilation. Pancreas: Unremarkable, no focal lesions. Spleen: Unremarkable. Adrenals: Unremarkable. Kidneys and ureters: There is prominent right hydronephrosis. There is a polygonal 9 mm stone in the proximal ureter. Additional nonobstructive stone is in the right renal collecting system. Bladder: Limited evaluation due to underdistention. Reproductive organs: Incidental note is made of an exophytic lesion arising from the uterus which may represent a fibroid, although evaluation is limited on noncontrast exam.. Bowel: Unremarkable appearance of the bowel. The appendix is normal. A hiatal hernia is seen. Lymph nodes Retroperitoneal: Unremarkable. Pelvic: Unremarkable. Mesenteric: Unremarkable. Peritoneum: Normal. Vessels: Unremarkable. Abdominal wall: An umbilical hernia is seen. Bones: Unremarkable. IMPRESSION: Right obstructive nephrolithiasis with associated hydronephrosis. Nonobstructive nephrolithiasis is also noted. ACT 112: Negative or not required by law. Electronically signed by: Don Gottlieb M.D. 11/21/2021 4:36 PM Dictated:11/21/21 [id number]
[2021-11-22] MEDS ORDERED: HYDROmorphone INJ 0.5 MG/0.5 ML SYR IV PRN (12:18)
--- NOTE | 2021-11-22 12:18 | Hospitalist Progress Note ---
Date of Service November 22, 2021 Assessment & Plan (1) Right ureteral calculus: (2) Hydronephrosis: Plan This is a 46 yr old F who is from [place], [place] and was traveling to [place] for work yesterday when she developed an abrupt onset of R sided abdominal pain. She was found to have a 9mm R proximal ureteral obstructing stone with hydronephrosis. Hx of Kidney stone ~ 10 years ago tx with lithotripsy. She does not follow with anyone for Urology currently. Concern for possible complicated UTI. R ureteral calculus, 9mm R sided hydronephrosis Complicated UTI admit to med/surg continue empiric IV rocephin urine culture growing > 100k gram negative bacilli Urology consulted - plan to go to OR today for cysto and stent placement Pt currently NPO, will continue IVF daily flomax Hypomagnesemia mag 1.5 replace repeat in a.m. +Marijuana Screen encourage cessation DVT ppx: SCDs, encourage ambulation post op Dispo: admit to med/surg, remain admitted until urine culture returns and pt has successful ureteral stent placement, likely to remain admitted 1-2 more midnights FULL CODE PCP: Latesha Cates Pt was seen and examined in collaboration with Dr. Menendez, please see addendum Admission and Anticipated Discharge Date Admission Date: November 21, 2021 Supervising Physician Co-Signing Physician Notes Patient is seen and examined at bedside. She complains of right flank pain and headache today. Denies any hematuria, dysuria. Plan for ureteral stent placement by urology today. On exam patient is obese, no apparent distress, normocephalic atraumatic, EOMI, normal breath sounds, clear to auscultation, S1-S2, no murmur, no pedal edema, abdomen soft, right flank tender, no guarding or rigidity, normal bowel sounds, alert, awake, oriented, grossly no focal deficits. Complicated UTI Obstructive uropathy Right ureteral calculus Continue IV fluids, IV Rocephin Follow-up cultures Appreciate urology input Started on Flomax Replace electrolytes as needed I personally reviewed the record. Patient is interviewed and examined at bedside. Patient's care is coordinated with Susan Perez PA-C. Please refer to the documentation above for details of patient's presentation and for discussion of other issues. Subjective Patient was seen and examined in room B7. Follow-up right hydronephrosis secondary to obstructive ureteral stone. Currently feels pain is controlled. History of kidney stone in the past requiring lithotripsy. Currently denies any fever, chills, sweats, lightheadedness, dizziness, chest pain, shortness of breath, nausea, vomiting, abdominal pain. Currently denies dysuria, increased urgency or frequency with urination. Plan is to undergo cystoscopy with stent placement. Review of Systems Review of Systems: All systems reviewed & are unremarkable except as noted in HPI & below Physical Exam Physical Exam: Constitutional: WD/WN, vitals as above, NAD, sitting up in bed, pleasant, conversing easily Head: Normocephalic, Atraumatic Eyes: PERRL, conjunctivae normal, anicteric sclerae ENMT: external ear and nose normal, oropharynx normal Neck: trachea midline, no thyromegaly normal visual inspection Respiratory: normal respiratory effort, lungs clear to auscultation, no wheeze, rales, rhonchi. Normal insp/exp effort, no accessory muscle use Cardiovascular: RRR, no murmur, no edema Vessels: no JVD or carotid bruit Chest: normal inspection of chest Abdomen: normal bowel sounds, soft, nontender, no hepatosplenomegaly, no cva tenderness Musculoskeletal: no cyanosis or clubbing, AROM x 4 Skin: no rashes, warm and dry normal turgor Neurologic: PERRL, EOMI, accommodation nl, no face palsy, no dysarthria CN's II-XI intact bilaterally and moves all extremities Psychiatric: A+Ox3, euthymic affect Lymphatic: no cervical or axillary lymphadenopathy : deferred Results & Data Results & Data ([facility]) Vital Signs (Past 12 Hours) Vital Signs Pulse Resp BP Pulse Ox O2 Del Method 11/22/21 06:15 101 H 20 129/78 96 Room Air 11/22/21 02:21 92 H 20 118/76 99 Laboratory Results Short CBC 11/21/21 11/22/21 Range/Units 14:31 06:09 WBC 9.91 8.55 (4.8-10.8) K/ul Hgb 13.3 11.8 L (12.0-16.0) g/dl Hct 39.4 34.6 (34.1-44.9) % Plt Count 233 179 (130-400) K/uL BMP 11/21/21 11/22/21 14:31 06:09 Sodium 142 137 Potassium 3.8 3.5 Chloride 107 107 Carbon Dioxide 29 24 BUN 21 12 Creatinine 0.88 0.65 Glucose 117 H 109 H Calcium 9.2 8.1 L Liver Function 11/21/21 Range/Units 14:31 Total Bilirubin 0.4 (0.2-1.0) mg/dl AST 13 (13-39) U/L ALT 10 (7-52) U/L Alkaline Phosphatase 51 (34-104) U/L Albumin 4.2 (3.4-5.0) gm/dl Urine 11/21/21 Range/Units 15:35 Urine Color Yellow Urine Appearance Cloudy A (Clear) Urine pH 6.0 (4.5-7.5) Ur Specific [place] 1.027 (1.000-1.030) Urine Protein 1+ H (Negative) Urine Glucose (UA) Negative (Negative) Diagnostic Findings Abdomen/Pelvis CT 11/21/21 15:19 CT abd pelvis wo con CLINICAL HISTORY: RLQ abd pain TECHNIQUE: Helical axial images of the abdomen and pelvis were obtained. Automated dose lowering techniques and/or adjustment according to patient size were utilized for this exam. This exam was performed without intravenous contrast. CT DOSE: 1480.24 mGy.cm COMPARISON: None available at the time of this dictation. FINDINGS: Lower chest: No acute abnormality Liver: Unremarkable. No focal lesions are seen. Gallbladder and biliary tree: No calcified gallstones. Normal caliber wall. No intra- or extrahepatic biliary ductal dilation. Pancreas: Unremarkable, no focal lesions. Spleen: Unremarkable. Adrenals: Unremarkable. Kidneys and ureters: There is prominent right hydronephrosis. There is a polygonal 9 mm stone in the proximal ureter. Additional nonobstructive stone is in the right renal collecting system. Bladder: Limited evaluation due to underdistention. Reproductive organs: Incidental note is made of an exophytic lesion arising from the uterus which may represent a fibroid, although evaluation is limited on noncontrast exam.. Bowel: Unremarkable appearance of the bowel. The appendix is normal. A hiatal hernia is seen. Lymph nodes Retroperitoneal: Unremarkable. Pelvic: Unremarkable. Mesenteric: Unremarkable. Peritoneum: Normal. Vessels: Unremarkable. Abdominal wall: An umbilical hernia is seen. Bones: Unremarkable. IMPRESSION: Right obstructive nephrolithiasis with associated hydronephrosis. Nonobstructive nephrolithiasis is also noted. ACT 112: Negative or not required by law. Electronically signed by: Don Gottlieb M.D. 11/21/2021 4:36 PM Medications Administered Current Inpatient Medications Acetaminophen (Acetaminophen 325 Mg Tab) 650 mg PO Q4H PRN PRN Reason: pain/fever Stop: 12/21/21 22:35 Last Admin: 11/22/21 08:09 Dose: 650 mg Hydromorphone HCl (Hydromorphone Inj 0.5 Mg/0.5 Ml Syr) 0.5 mg IV Q3H PRN PRN Reason: Pain Stop: 12/05/21 22:35 Ceftriaxone Sodium 2,000 mg/ (Dextrose) 70 mls @ 100 mls/hr IV Q24H RENETTA; Protocol Stop: 12/02/21 17:59 Sodium Chloride (Nss 1000ml) 1,000 mls @ 125 mls/hr IV .Q8H RENETTA Stop: 12/21/21 22:35 Last Admin: 11/22/21 06:41 Dose: 125 mls/hr Ondansetron HCl (Ondansetron Inj 2 Mg/Ml 2 Ml Vial) 4 mg IV Q6H PRN PRN Reason: Nausea Stop: 12/21/21 22:35 Polyethylene Glycol (Polyethylene (Miralax) 17 Gm Pack) 17 gm PO DAILY PRN PRN Reason: Constipation Stop: 12/21/21 22:35 Tamsulosin HCl (Tamsulosin Hcl 0.4 Mg Cap) 0.4 mg PO QAM [facility] Stop: 12/22/21 08:59 Last Admin: 11/22/21 08:09 Dose: 0.4 mg
[2021-11-22] MEDS ORDERED: ATROPINE SULFATE 0.1 MG/ML 10ML SYR IV PRN (13:12)
[2021-11-22] MEDS ORDERED: ONDANSETRON INJ 2 MG/ML 2 ML VIAL IV PRN (13:12)
[2021-11-22] MEDS ORDERED: ePHEDrine sulfate 50 MG/ML AMP IV PRN (13:12)
[2021-11-22] MEDS ORDERED: fentaNYL citrate 100 MCG/2 ML VIAL IV PRN (13:12)
[2021-11-22] MEDS ORDERED: ONDANSETRON INJ 2 MG/ML 2 ML VIAL ONE (13:23)
[2021-11-22] MEDS ORDERED: PROPOFOL IV EMULSION 10 MG/ML 20 ML VIAL IV ONE ×2 (13:23→14:01)
[2021-11-22] MEDS ORDERED: LIDOCAINE 2% 20 MG/ML 5 ML SYR IV ONE (13:23)
[2021-11-22] MEDS ORDERED: MIDAZOLAM HCL 1 MG/ML 2ML VIAL ONE ×2 (13:23→13:56)
[2021-11-22] MEDS ORDERED: fentaNYL citrate 100 MCG/2 ML VIAL ONE (13:23)
[2021-11-22] MEDS ORDERED: ACETAMINOPHEN 1000 MG/100 ML IV IV ONE (13:45)
[2021-11-22] MEDS ORDERED: KETOROLAC 30 MG/ML VIAL ONE (14:04)
[2021-11-22] MEDS ORDERED: DIATRIZOATE MEGLUMINE 30% 100ML VIAL INSTIL ONE (14:05)
--- NOTE | 2021-11-22 14:07 | Post Operative Brief Note ---
PG Immediate Post Op with CF Date of Surgery November 22, 2021 Pre & Post Diagnosis Operation Date: 11/22/21 10:20 Pre-Op Diagnosis: ABDOMINAL PAIN Post-Op Diagnosis: ABDOMINAL PAIN I identified the patient and participated in the time-out.: Yes Procedure Operation Date: 11/22/21 10:20 Actual Procedures p Cystoscopy, Right Retrograde Pyelogram, Right Stent Placement(Right) - Yusuf Darnell MD Surgeon Yusuf Darnell MD Drawer Waxer None Estimated Blood Loss 0 Findings See Below Right retrograde pyelogram did not show any extravasation. Stent in appropriate position. Some debris out of the kidney but no purulence. Drains Other (6 [place] by 26 mm right ureteral stent) Complications none
--- NOTE | 2021-11-22 14:13 | Operative Report ---
PG Post Operative Report Pre & Post Diagnosis Operation Date: 11/22/21 10:20 Pre-Op Diagnosis: ABDOMINAL PAIN Post-Op Diagnosis: ABDOMINAL PAIN I identified the patient and participated in the time-out.: Yes Procedure Operation Date: 11/22/21 10:20 Actual Procedures p Cystoscopy, Right Retrograde Pyelogram with radiographic interpretation, Right Stent Placement(Right) - Yusuf Darnell MD Surgeon Yusuf Darnell MD Project Finance Analyst None Estimated Blood Loss 0 Findings See Below Retrograde did not opacify the collecting system but was able to easily coil a stent in the kidney. Some debris from the kidney but no purulence. Specimens None Drains 6 [place] by 26 cm right ureteral stent Anesthesia Type MAC Complications none Indications 46-year-old female with a right obstructing ureteral calculus and urinalysis concerning for infection. Risks and benefits were discussed and patient was taken to the OR for stent placement. Description of Procedure After informed consent was obtained, the patient was transported operative suite. MAC anesthesia was induced. The patient was placed in dorsolithotomy position prepped and draped in a sterile fashion. They received preoperative ceftriaxone for antibiotic prophylaxis. An appropriate surgical timeout was performed. A 22 [place] rigid scope was inserted per urethra into the bladder. Zaragoza cystoscopy revealed no stones or lesions. I turned my attention the right ureteral orifice and intubated this with a 5 [place] open-ended catheter. A right retrograde pyelogram was shot which did not opacify the collecting system due to obstructing stone. I did not want to push more contrast and possibly push infected urine back in her blood. A sensor wire was advanced into the kidney and confirmed fluoroscopically. A 6 [place] by 26 cm right ureteral stent was deployed with a good proximal coil in the renal pelvis and a good distal coil noted in the bladder, confirmed fluoroscopically and under direct visualization, respectively. The bladder was emptied and the scope was removed. This concluded the end of the case. All counts were correct at the end of the case. I was present, scrubbed, and actively participated for the entirety of the procedure. I attest to the content of the Intraoperative Record and any orders documented therein. Any exceptions are noted below.
--- NOTE | 2021-11-22 14:31 | Fluoroscopy Report ---
FL retrograde includes kub CLINICAL HISTORY: RT TECHNIQUE: 6 views were obtained with the C-arm in the OR with the above procedure. Total fluoroscopy time was 11.2 seconds. Total skin dose was 4.84 mGy. Comparison: None available at the time of this dictation. FINDINGS/IMPRESSION: Intraoperative images were obtained of right retrograde pyelogram and stent plac ement. Please correlate with intraoperative fluoroscopy and operative report. ACT 112: Negative or not required by law. Electronically signed by: Don Gottlieb M.D. 11/22/2021 2:30 PM
--- NOTE | 2021-11-22 14:48 | Anesthesiology Progress Note ---
Date of Service November 22, 2021 Anesthesia Post Procedure Vital Signs Vital Signs: Temp Pulse Pulse Pulse Resp BP BP 11/22/21 14:40 106 H 18 109/69 11/22/21 14:30 105 H 20 106/70 11/22/21 14:20 106 H 21 119/64 11/22/21 14:14 102.0 F H 105 H 20 110/67 11/22/21 12:41 100.6 F H 104 H 20 127/89 11/22/21 06:15 101 H 20 129/78 11/22/21 02:21 92 H 20 118/76 11/21/21 23:09 99.3 F 83 20 119/71 11/21/21 21:15 76 20 130/76 11/21/21 19:15 74 20 123/69 11/21/21 17:02 111/61 11/21/21 17:02 11/21/21 17:00 11/21/21 16:50 11/21/21 16:40 11/21/21 16:31 11/21/21 16:30 128/67 11/21/21 16:29 11/21/21 16:25 11/21/21 16:25 141/62 H 11/21/21 16:23 11/21/21 16:23 154/102 H 11/21/21 16:04 139 H 11/21/21 15:20 73 11/21/21 15:17 72 11/21/21 15:01 97.9 F 74 18 174/102 H Pulse Ox O2 Del Method 11/22/21 14:40 96 Room Air 11/22/21 14:30 95 Room Air 11/22/21 14:20 97 Room Air 11/22/21 14:14 95 Room Air 11/22/21 12:41 99 Room Air 11/22/21 06:15 96 Room Air 11/22/21 02:21 99 11/21/21 23:09 97 Room Air 11/21/21 21:15 98 Room Air 11/21/21 19:15 98 Room Air 11/21/21 17:02 11/21/21 17:02 100 11/21/21 17:00 100 11/21/21 16:50 97 11/21/21 16:40 100 11/21/21 16:31 100 11/21/21 16:30 11/21/21 16:29 100 11/21/21 16:25 100 11/21/21 16:25 11/21/21 16:23 98 11/21/21 16:23 11/21/21 16:04 11/21/21 15:20 100 11/21/21 15:17 98 11/21/21 15:01 100 Room Air Pain Intensity Right Lower Abdomen: Pain Intensity: 3 Transfer of Care Handoff Completed per policy Notes Mental Status: alert / awake / arousable and participated in evaluation Patient Amnestic to Procedure: Yes Nausea / Vomiting: adequately controlled Pain: adequately controlled Airway Patency, RR, SpO2: stable & adequate BP & HR: stable & adequate Hydration State: stable & adequate Anesthetic Complications: no major complications apparent and Pt Satisfied with anesthetic care
[2021-11-22] MEDS ORDERED: cefTRIAXone SODIUM 2,000 MG in DEXTROSE 5% 50 ML IV SCH (18:00)
[2021-11-22] MEDS: KETOROLAC TROMETHAMINE 15 MG/ML VIAL IV PRN (22:25)
[2021-11-23] MEDS: ACETAMINOPHEN 325 MG TAB PO PRN ×3 (03:18→19:48)
--- NOTE | 2021-11-23 03:24 | Communication Note ---
Date of Service: November 23, 2021 Made aware by RN of fever spike in early a.m. Ap Sepsis secondary to complicated UTI GNR on initial urine CS gram stain Fever spike on ceftriaxone Rx Cefepime in place of Ceftriaxone until final CS resulted. Will relay to AM provider.
[2021-11-23] MEDS: CEFEPIME 2,000 MG in SYRINGE 0 ML IV SCH ×2 (04:19→17:25)
[2021-11-23] MEDS: KETOROLAC TROMETHAMINE 15 MG/ML VIAL IV PRN ×2 (04:34→19:42)
[2021-11-23] MEDS: SODIUM CHLORIDE 0.9% 1000ML 1,000 ML IV SCH (06:48)
[2021-11-23] MEDS: TAMSULOSIN HCL 0.4 MG CAP PO SCH (07:59)
[2021-11-23 08:13] LABS: Hemoglobin 10.6 g/dl (12.0-16.0); Mean Corpuscular Hemoglobin 28.6 pg (25.0-34.0); Mean Corpuscular Hgb Conc 34.2 g/dL (32.0-36.0); Mean Corpuscular Volume 83.8 fL (80.0-100.0); Mean Platelet Volume 9.6 fL (9.4-12.3); Platelet Count 138 K/uL (130-400); RDW Coefficient of Variation 12.2 % (11.5-14.5); White Blood Count 4.32 K/ul (4.8-10.8)
--- NOTE | 2021-11-23 08:39 | Urology Progress Note ---
Date of Service November 23, 2021 Assessment & Plan (1) Right ureteral calculus: (2) Complicated UTI (urinary tract infection): Plan 46-year-old female with a right obstructing ureteral calculus and concern for urinary tract infection. She is status post right ureteral stent on 11/22/2021 Saw patient this morning discussed plan moving forward Growing out Proteus mirabilis, recommend 10 days total of antibiotic treatment Recommend adding oxybutynin 5 mg 3 times daily as needed for bladder spasms Urology sent a message to schedule stone treatment and follow-up in clinic At time of discharge, please send patient home on Flomax, oxybutynin and antibiotics Urology to sign off. Please call with any questions or concerns. Admission and Anticipated Discharge Date Admission Date: November 21, 2021 Subjective No acute issues overnight. Patient tolerating stent fairly well with some minimal bladder spasms. Feels better than yesterday. Currently afebrile with stable vitals. Did have a temp of 38 degrees at 3 AM this morning. Labs stable this morning. Review of Systems Review of Systems: 14 point review of systems negative outside of what is listed above in HPI Physical Exam Physical Exam: General: Alert and oriented, no acute distress HEENT: Normocephalic, mucous membranes moist Pulmonary: Nonlabored respirations Abdomen: Nondistended Extremities: Moves all 4 spontaneously Neuro: No gross deficits Skin: Warm, dry, no rashes noted Results & Data ([facility]) Vital Signs (Past 12 Hours) Vital Signs Temp Pulse Resp BP Pulse Ox O2 Del Method 11/23/21 07:56 37.2 C 90 18 142/69 H 97 Room Air 11/23/21 04:30 37.7 C H 11/23/21 03:00 38.0 C H 86 18 127/69 95 Room Air 11/22/21 23:15 37.4 C 88 18 132/62 96 Room Air PG Care Time/CCT Total # of Minutes Spent Total Time Spent with Patient: Total time spent is greater than 50% in coordination of care (as documented) at patient's floor/unit and/or counseling patient: Coding Level of Care Code 15882 Subseq Hosp Care Lvl 2 Diagnoses Right ureteral calculus N20.1 Complicated UTI (urinary tract infection) N39.0
[2021-11-23 08:53] LABS: BUN Creatinine Ratio 11.9 (10-20); Creatinine Clr Calc Pharmacy 152.6 ml/min; Est GFR (African American) 129.2 ml/min; Est GFR (Non-African American) 111.5 ml/min; Magnesium 1.8 mg/dl (1.7-2.4); Potassium 3.3 mmol/L (3.5-5.1)
[2021-11-23] MEDS ORDERED: POTASSIUM CHLORIDE CRTAB 20 MEQ TABCR PO ONE (08:54)
[2021-11-23] MEDS ORDERED: PHENAZOPYRIDINE HCL 100 MG TAB PO PRN (12:33)
[2021-11-23] MEDS ORDERED: BUTALBITAL/ACETAMIN/CAFFEINE TAB PO PRN (12:33)
[2021-11-23] MEDS: ADVANCED PROBIOTIC 1250 MG CAPSULE PO SCH (15:35)
--- NOTE | 2021-11-23 16:40 | Hospitalist Progress Note ---
Date of Service November 23, 2021 Assessment & Plan (1) Right ureteral calculus: (2) Hydronephrosis: Plan Patient is a 46 yr female from [place], [place] and was traveling to [place] for work yesterday when she developed an abrupt onset of R sided abdominal pain. Complicated UTI Obstructive uropathy Right ureteral calculus H/O Kidney stone ~ 10 years ago tx with lithotripsy. She does not follow with anyone for Urology currently. --CT ABD:Right obstructive nephrolithiasis with associated hydronephrosis. Nonobstructive nephrolithiasis is also noted. --S/P Cystoscopy, Right Retrograde Pyelogram with radiographic interpretation, Right Stent Placement --Urine Cx:Proteus --Blood Cx: pending --IV Rocephin changed to Cefepime Appreciate Urology Input Continue Flomax Needs follow up Urology as outpatient Hypomagnesemia Hypokalemia Replace electrolytes as needed Diarrhea Negative stool for C diff Added Probiotics Headache H/O Migraine Pain meds as needed +Marijuana Screen encourage cessation Morbid Obesity BMI: 46 DVT Px: SCDs, encourage ambulation Code Status FULL CODE Admission and Anticipated Discharge Date Admission Date: November 21, 2021 Subjective Patient is seen and examined at bedside States having some right flank pain likely secondary to stent Also reports headache Had loose bowel movement today Denies any chest pain, dyspnea, dizziness Offers no other complaints Febrile overnight Review of Systems Review of Systems: All systems reviewed & are unremarkable except as noted in Subjective Physical Exam Physical Exam: Physical Exam: Vitals signs as noted above General Appearance:Morbidly Obese, no apparent distress Head: normocephalic, Atraumatic Eyes: normal inspection, EOMI Neck: supple, Trachea midline Respiratory/Chest: Normal breath sounds, CTA, No accessory muscle use Cardiovascular: S1, S2, No murmur Abdomen/GI:Soft, Non tender, Bowel sounds present Extremities/Musculoskeletal:normal inspection, no edema Neurologic/Psych:AAOX3, grossly no focal neurological deficits Skin: normal color, warm Results & Data Results & Data ([facility]) Vital Signs (Past 12 Hours) Vital Signs Temp Pulse Resp BP Pulse Ox O2 Del Method 11/23/21 15:08 37.6 C H 11/23/21 13:00 37.9 C H 100 H 18 149/91 H 96 Room Air 11/23/21 11:00 37.5 C 92 H 18 144/76 H 98 Room Air 11/23/21 07:56 37.2 C 90 18 142/69 H 97 Room Air Laboratory Results Short CBC 11/23/21 Range/Units 07:46 WBC 4.32 L (4.8-10.8) K/ul Hgb 10.6 L (12.0-16.0) g/dl Hct 31.0 L (34.1-44.9) % Plt Count 138 (130-400) K/uL BMP 11/23/21 07:46 Sodium 136 Potassium 3.3 L Chloride 107 Carbon Dioxide 25 BUN 7 Creatinine 0.59 L Glucose 101 H Calcium 8.0 L
[2021-11-24] MEDS: CEFEPIME 2,000 MG in SYRINGE 0 ML IV SCH (05:50)
[2021-11-24 07:18] VITALS: TEMP 99.1; O2SAT 97
[2021-11-24] MEDS: ADVANCED PROBIOTIC 1250 MG CAPSULE PO SCH (08:01)
[2021-11-24 08:07] VITALS: BP 140/88; PULSE 84
[2021-11-24] MEDS: TAMSULOSIN HCL 0.4 MG CAP PO SCH (09:07)
[2021-11-24 09:22] LABS: BUN Creatinine Ratio 9.2 (10-20); Calcium 8.5 mg/dl (8.5-10.1); Creatinine Clr Calc Pharmacy 138.5 ml/min; Est GFR (African American) 125.1 ml/min; Magnesium 1.8 mg/dl (1.7-2.4); Potassium 3.6 mmol/L (3.5-5.1)
[2021-11-24] MEDS ORDERED: ALUMINUM/MAGNESIUM/SIMETH (MAALOX MAX) 30 ML UDC PO PRN (09:30)
[2021-11-24 09:41] LABS: Marijuana Quant, GCMS Urine 112 ng/mL (<5)
[2021-11-24] MEDS ORDERED: FAMOTIDINE 10 MG TABLET PO SCH (10:00)
[2021-11-24] MEDS: ACETAMINOPHEN 325 MG TAB PO PRN (13:52)
--- NOTE | 2021-11-24 14:40 | Discharge Summary ---
Date of Service November 24, 2021 Admission HPI Per Admitting Provider HISTORY OF PRESENT ILLNESS: A 45-year-old female with past medical history significant for kidney stone 10-11 years ago, treated with lithotripsy, obesity, comes because of right abdominal pain. The patient is from [facility]. She was coming to [place] for work and on the way she started noticing right flank pain, severe pain, associated with nausea and not getting better, so she came to the ER and found to have right kidney stone. After the pain medication, currently resting comfortably. Pain is resolved. Hemodynamically stable currently. Denies any headache. No blurred visions, no earache, no runny nose, no sore throat, no cough. Was feeling a lot of chills. No chest pain, no shortness of breath. Normal bowel and bladder movements. No burning micturition, no hematuria, no swelling in the legs. Admission Exam Per Admitting Provider PHYSICAL EXAMINATION: GENERAL: The patient is obese, not in acute distress. VITAL SIGNS: Temperature 36.6, pulse 74, respiratory rate 20, blood pressure 123/69, oxygen 98% on room air. HEENT: Pupils equal, round and reactive to light. Oral mucosa moist. NECK: No JVD, no neck masses. CARDIOVASCULAR: S1 and S2 heard. Regular rate and rhythm. No murmur, no gallop. RESPIRATORY SYSTEM: Normal AP diameter. No accessory muscle use. No wheezing, no crackles. ABDOMEN: Soft, bowel sounds present. Mild epigastric tenderness. Right upper quadrant tenderness present. No guarding, no rigidity, no distention. No CVA tenderness. CENTRAL NERVOUS SYSTEM: Cranial nerves II-XII grossly intact, nonfocal. EXTREMITIES: No edema, no erythema. Principal Diagnosis Complicated UTI Obstructive uropathy Right ureteral calculus Discharge Exam General Appearance: Morbidly obese, sitting up in bed, no apparent distress Head: normocephalic, atraumatic Eyes: normal inspection, EOMI Neck: supple, Trachea midline Respiratory/Chest: Normal breath sounds, CTA, No accessory muscle use Cardiovascular: S1, S2, No murmur Abdomen/GI:Soft, Non tender, Bowel sounds present Extremities/Musculoskeletal:normal inspection, no edema Neurologic/Psych:AAOX3, grossly no focal neurological deficits Skin: normal color, warm Discharge Data Allergies Allergy/AdvReac Type Severity Reaction Status Date / Time No Known Allergies Allergy Unverified 11/21/21 18:17 Consultations 11/21/21 18:53 ED Decision to Admit Stat 11/22/21 08:00 Consult Urology Routine Procedures Performed Operation Date: 11/22/21 10:20 Actual Procedures p Cystoscopy, Right Retrograde Pyelogram, Right Stent Placement(Right) - Yusuf Darnell MD Ordered Studies 11/21/21 15:19 CT abd pelvis wo con Stat 11/22/21 13:30 FL retrograde includes kub Routine Hospital Course (1) Right ureteral calculus: (2) Hydronephrosis: (3) Complicated UTI (urinary tract infection): (4) Morbid obesity: Plan Patient is a 46yo F from [place] who presented with sudden onset R abdominal pain. CT abdomen with Right obstructive nephrolithiasis with associated hydronephrosis. Nonobstructive nephrolithiasis is also noted. Status post cystoscopy, Right Retrograde Pyelogram with radiographic interpretation, Right Stent Placement by Dr. Darnell on 11/22/21. Pain resolved, urinating without issue. Urine culture growing hernandez-sensitive Proteus, preliminary blood culture without growth. Transitioned to PO Cipro to complete 10 day antibiotic course as recommended by urology. Follow-up scheduled with [facility] urology in clinic next week. Continue Flomax, PRN oxybutynin. Started on Pepcid trial due to dyspepsia following NSAIDs with improvement - continue Pepcid x 10 days. Developed diarrhea during admission that has since improved. Negative stool for C diff. Continue probiotics. Follow up with PCP regarding blood culture results that are pending. Patient comfortable and hemodynamically stable at time of discharge. Total Time Total Time Spent Total Time Spent (In Minutes): 50 Discharge Plan Discharge Items Patient Disposition: Home - Self-Care Reason For Visit: ABDOMINAL PAIN Discharge Diagnosis: Complicated UTI Obstructive uropathy Right ureteral calculus Activity: Resume your previous activity Non-emergency contact: Primary Care Provider Call non-emergency contact if: you have any medication questions, your symptoms worsen, your pain is not controlled and your temperature is above 101 Follow-up/Referrals: Yusuf Darnell MD [Physician] - 12/05/21 11:00 am Latesha Cates MD [Primary Care Provider] - Diet: Regular Addtl Attending Provider Instructions: You were admitted for right sided abdominal pain. CT abdomen with Right obstructive nephrolithiasis with associated hydronephrosis. Nonobstructive nephrolithiasis is also noted S/P Cystoscopy, Right Retrograde Pyelogram with radiographic interpretation, Right Stent Placement by Dr. Darnell on 11/22/21 Urine culture growing hernandez-sensitive Proteus - will transition to PO Cipro to complete 10 day antibiotic course as recommended by urology Blood culture without growth (preliminary) Follow-up with urology in clinic next week. Continue Flomax, PRN oxybutynin Started on Pepcid trial due to dyspepsia following NSAIDs with improvement - continue 10mg BID x 10 days Developed diarrhea during admission - negative stool for C diff. Continue probiotics x 10 days PENDING TEST RESULTS: Blood culture RECOMMENDATIONS FOR FOLLOW-UP: Follow up with [facility] urology next week, PCP in [place] OTHER INSTRUCTIONS: Seek medical attention if you have: * temperature above 101 * chest pain or trouble breathing * abdominal pain, nausea, vomiting * diarrhea, dark stools or bloody stools * any unanswered questions or concerns Call 911 if symptoms are severe. Please take good care of yourself. Call if you have any questions or problems. You can reach a [facility] hospitalist on duty at [facility] 24 hours a day by calling [phone]. Pending Studies at Discharge: Yes Studies:: blood culture Stand-Alone Forms: My [facility], Work/School Release, Smoking Cessation Medications and DC Order Prescriptions: New famotidine [Acid Phone Counselor (famotidine)] 10 mg Tablet 10 mg PO BID Qty: 10 0RF Rx Instructions: Take twice daily x 10 days. tamsulosin 0.4 mg Capsule 0.4 mg PO QAM Qty: 30 0RF Rx Instructions: Take once daily Advanced Probiotic 625 mg (10 billion cell) Capsule 2 cap PO DAILY Qty: 20 0RF Rx Instructions: Take 2 caps daily x 10 days. phenazopyridine [Pyridium] 100 mg Tablet 100 mg PO TID PRN (Reason: pain) Qty: 10 0RF Rx Instructions: Take up to 3 times a day as needed for pain with urination. oxybutynin chloride 5 mg tablet 5 mg PO Q8H PRN (Reason: bladder spasms) Qty: 15 0RF Rx Instructions: Take up to 3x daily as needed for bladder spasms. ciprofloxacin HCl [Cipro] 500 mg tablet 500 mg PO BID Qty: 14 0RF Rx Instructions: Take twice daily until course complete. Discharge Orders: Discharge Order (Routine); Ordered 11/24/21 Ordered By: Nadia Buchanan/Other Patient Handouts: Preventing Kidney Stones Admission Data Admit Date/Time: 11/21/21 21:30 Attending Provider: Jonathan Almeida Admit Provider: Allen Winslow Primary Care Provider: Latesha Cates Other Providers: Allen Winslow ; Bryant Osborn ; Graham Head ; Abram Haddad ; Lindsey Blood ; Randy Romeo ; Tamia Cavanaugh ; Toña Jalloh ; Sachin Brunson ; Brayden Ron ; Tatiana Smith ; Jayant Garcia ; Ibis Mancuso ; Yusuf Darnell ; Nadia Casanova Other Interventions: Discharge Summary Assessment (RN) Last Done: 11/24/21 14:07 Supervising Physician Co-Signing Physician Notes Patient is seen and examined at bedside. Right flank pain is much improved. Headache improved as well. Advised to follow up with Urologist as outpatient. On exam patient is obese, no apparent distress, normocephalic atraumatic, EOMI, normal breath sounds, clear to auscultation, S1-S2, no murmur, no pedal edema, abdomen soft, right flank tender, no guarding or rigidity, normal bowel sounds, alert, awake, oriented, grossly no focal deficits. Complicated UTI Obstructive uropathy Right ureteral calculus Urine Cx grew proteus Received IV fluids IV Rocephin>>Cefepime Appreciate urology input Continue Flomax Transition to Cipro to complete the course Advised to follow-up with urology upon discharge. I personally reviewed the record. Patient is interviewed and examined at bedside. Patient's care is coordinated with Nadia Casanova PA-C. Please refer to e documentation above for details of patient's presentation and for discussion of other issues.
== END 2021-11-24 15:52 | disposition home or self-care (01) | DRG 660 ==
LOC: ED 12:18 → EDINP 21:30 → SUATTDRO 21:30 → EDINP 11-22 12:35 → 4E1 11-22 15:10 → 3N 11-23 13:01
DX: E66.01 Morbid (severe) obesity due to excess calories; Z68.42 Body mass index [BMI] 45.0-49.9, adult; N13.6 Pyonephrosis; Z87.442 Personal history of urinary calculi; E83.42 Hypomagnesemia